=== PATIENT | male | born 1995 | race Two or more races ===

== ENCOUNTER 2023-05-16 05:23 | Emergency (ER) | payer SELFPAY ==
[2023-05-16 05:23] VITALS: BP 168/104; PULSE 95; RESP 18; TEMP 36.8; O2SAT 100; BMI 25.7
[2023-05-16 05:33] VITALS: PULSE 105
--- NOTE | 2023-05-16 05:36 | ECG_ITS ---
[facility] Test Date: 2023-05-16 Pat Name: BARBARA SAHNI Department: Room: - Gender: Male [employer] Consultant: : 1995 Requested By: Order Number: [id number] Reading MD: PRASHANTH BREWSTER Measurements Intervals [place] Rate: 91 P: 46 WI: 152 QRS: 84 QRSD: 86 T: 61 QT: 350 QTc: 398 Interpretive Statements 1100 Sinus rhythm 4068 Nonspecific [place] abnormality 9130 borderline ECG No previous ECG available for comparison Electronically Signed On 05-17-2023 18:40:38 EDT by PRASHANTH BREWSTER
--- NOTE | 2023-05-16 05:37 | ED.ANXIETY1 ---
HPI - Anxiety General Chief Complaint: Anxiety Stated Complaint: CONFUSION Time Seen by Provider: 05/16/23 05:31 History of Present Illness HPI narrative: 27-year-old male presents for possible panic attack. Just before coming into the emergency department he was asleep and he awoke and his heart was racing and he felt anxious. He feels much better now. He thinks he may have had a fever for a few days, he didn't check his temperature. He's also had some body aches and was worried about Covid. No vomiting or diarrhea. Related Data Allergies Allergy/AdvReac Type Severity Reaction Status Date / Time No Known Drug Allergies Allergy Verified 05/16/23 05:25 Review of Systems ROS Narrative A ten point review of systems is negative except as noted above. Constitutional Reports: fever PFSH PFSH Social History Smoking status: Current some day smoker Exam Narrative Exam Narrative: Nurses note and vital signs reviewed and patient is not hypoxic. General: The patient appears well and in no apparent distress. Patient is resting comfortably on cart. Skin: Warm, dry, no pallor noted. There is no rash noted. Head: Normocephalic, atraumatic Eye: Normal conjunctiva, no drainage Ears, Nose, Mouth, and Throat: oral mucosa is moist. Nares patent. Cardiovascular: Regular Rate and Rhythm Respiratory: Patient is in no distress, no accessory muscle use, lungs are clear to auscultation, no wheezing, rales or rhonchi Back: non-tender GI: soft and nontender Musculoskeletal: The patient has no evidence of calf tenderness, no pitting edema, symmetrical pulses noted bilaterally Neurological: A&O, normal speech Psychiatric: Cooperative Constitutional Vital Signs, click to edit/add: Last Vital Signs Temp 98.3 F 05/16/23 05:23 Pulse 95 H 05/16/23 05:23 Resp 18 05/16/23 05:23 BP 168/104 H 05/16/23 05:23 Pulse Ox 100 05/16/23 05:23 Course Vital Signs Vital signs: Vital Signs Temperature 98.3 F 05/16/23 05:23 Pulse Rate 95 H 05/16/23 05:23 Respiratory Rate 18 05/16/23 05:23 Blood Pressure 168/104 H 05/16/23 05:23 Pulse Oximetry 100 05/16/23 05:23 Temperature 98.3 F 05/16/23 05:23 Pulse Rate 95 H 05/16/23 05:23 Respiratory Rate 18 05/16/23 05:23 Blood Pressure 168/104 H 05/16/23 05:23 Pulse Oximetry 100 05/16/23 05:23 MDM - Anxiety MDM Narrative Medical decision making narrative: my clinical impression is that he had a panic attack. He also tested positive for Covid and was informed. Treatment diagnosis and follow-up were discussed with the patient. Differential Diagnosis Differential diagnosis: Likely panic disorder and acute anxiety Lab Data Attestation: I reviewed the patient's lab results. Labs: Lab Results 05/16/23 Range/Units 05:40 SARS-CoV-2 (PCR) Positive A (NEGATIVE) ECG Data Attestation: I personally reviewed and interpreted this ECG as follows: ( EKG on my interpretation shows normal sinus rhythm at a rate of 91.) Discharge Plan Discharge Chief Complaint: Anxiety Clinical Impression: COVID-19, Panic attack Patient Disposition: Home, Self-Care Time of Disposition Decision: 06:00 Condition: Good Mode of Transportation: Private Vehicle Instructions: Panic Attack (ED), COVID-19 (Coronavirus Disease 2019) (ED), COVID-19: Slow the Coronavirus Spread (ED), Face Coverings (Masks) and COVID-19 (ED), How to Recover from COVID-19 at Home (ED), Social Distancing Guidelines for COVID-19 (ED), Long COVID (ED) Stand Alone Forms: Portal Instructions Referrals: Physician,Non-Staff, MD [Primary Care Provider] - 1 week
[2023-05-16 05:53] LABS: SARS-CoV-2 Ag POSITIVE (NEGATIVE)
== END 2023-05-16 06:16 | disposition home or self-care (01) ==
PROVIDERS: Emergency Provider Emergency Medicine
DX: F41.0 Panic disorder [episodic paroxysmal anxiety] (principal); U07.1 COVID-19; F17.210 Nicotine dependence, cigarettes, uncomplicated
CPT/HCPCS: 87811; 93005; 99284